=== PATIENT | male | born 1995 | race Caucasian/White ===

== ENCOUNTER 2020-10-11 22:00 | Emergency (ER) | payer OTHER ==
[2020-10-11 22:03] VITALS: BP 131/83; PULSE 89; TEMP 98.1; BMI 22.3
== END 2020-10-11 23:13 | disposition home or self-care (01) ==
LOC: JERFT 22:00 → JER 22:00
DX: H10.11 Acute atopic conjunctivitis, right eye (principal)
CPT/HCPCS: 99283-25